=== PATIENT | male | born 1960 | race Caucasian/White ===

== ENCOUNTER 2019-11-25 17:18 | Emergency (ER) | payer OTHER, BC ==
--- NOTE | 2019-11-25 17:32 | EDM.PDOC ---
ED HPI GENERAL MEDICAL PROBLEM - General Chief Complaint: Upper Extremity Injury/Pain Stated Complaint: [facility] Time Seen by Provider: 11/25/19 17:26 Source of Information: Reports: Patient, RN Notes Reviewed History Limitations: Reports: No Limitations - History of Present Illness INITIAL COMMENTS - FREE TEXT/NARRATIVE: Patient is a 59-year-old male presents to the ED via [facility] for a right shoulder injury. Patient notes he was at home, on a ladder that was about 3 feet off of the ground, and he fell off of the ladder onto his right shoulder. He thinks he may have dislocated the shoulder, states not been able to move his arm much at all. Still has pretty good band director strength in his hand, pulses are equal and present bilaterally. He does present with his shoulder above his head, and states is very difficult to move it because of the pain. He did get a total of 1 mg IV Dilaudid for pain management in route to the ER. He states his last meal was at around 11:45 AM this morning. He states he has been feeling well otherwise, no fevers or chills, cough/shortness of breath, nausea/vomiting/diarrhea. He states he did not his head, he did not lose consciousness, he is not having pain anywhere else. Right Shoulder Pain Score (Numeric/FACES): 6 - Related Data Allergies Allergy/AdvReac Type Severity Reaction Status Date / Time No Known Allergies Allergy Verified 11/25/19 17:26 Home Meds: Home Meds Hydrocodone/Acetaminophen [Hydrocodon-Acetaminophen 5-325] 1 each PO Q6HR PRN #15 tablet 11/25/19 [Rx] Social & Family History - Tobacco Use Smoking Status *Q: Never Smoker - Caffeine Use Caffeine Use: Reports: Soda - Recreational Drug Use Recreational Drug Use: No Review of Systems - Review of Systems Review Of Systems: Comprehensive ROS is negative, except as noted in HPI. ED EXAM, GENERAL - Physical Exam Exam: See Below Exam Limited By: No Limitations General Appearance: Alert, WD/WN, No Apparent Distress Respiratory/Chest: No Respiratory Distress, Lungs Clear, Normal Breath Sounds, No Accessory Muscle Use, Chest Non-Tender Cardiovascular: Normal Peripheral Pulses, Regular Rate, Rhythm, No Murmur Peripheral Pulses: 2+: Radial (L), Radial (R) Extremities: Normal Inspection (Patient has some skin abrasions on his right elbow, the arm is raised above his head, he states is too painful to move it further down at the shoulder joint, so I cannot assess whether it looks to be out of place or not.), Normal Capillary Refill Neurological: Alert, Oriented, Normal Cognition, No Motor/Sensory Deficits Psychiatric: Normal Affect, Normal Mood Skin Exam: Warm, Dry, Intact (Skin abrasions noted on the right elbow surface, these are not bleeding.), Normal Color, No Rash ED TRAUMA EXTREMITY PROCEDURES - Joint Reduction Right Shoulder Sedation: Conscious Sedation (Dr. Betancourt administered 110mg propofol total to achieve reduction) Pre-Procedure NV Status: Normal Post-Procedure NV Status: Normal Technique: Traction/Counter Traction Number of Attempts: 1 Post-Reduction Imaging: Completely Reduced Joint Reduction Complications: No Progress/Comments: Dr. Betancourt was in the room to help with propofol and reduction. Course - Vital Signs Last Recorded V/S: Last Vital Signs Temp 100.7 F H 11/25/19 17:22 Pulse 55 L 11/25/19 17:22 Resp 16 11/25/19 17:22 BP 155/74 H 11/25/19 17:22 Pulse Ox 99 11/25/19 17:22 - Orders/Labs/Meds Orders: Active Orders 24 hr Category Date Time Status Shoulder 1V Rt [CR] Stat Exams 11/25/19 17:26 Taken Shoulder Comp Rt [CR] Stat Exams 11/25/19 18:36 Taken Shoulder wo Cont Rt [CT] Stat Exams 11/25/19 19:16 Taken DME for Discharge [COMM] Routine Oth 11/25/19 18:09 Ordered Meds: Medications Discontinued Medications Generic Name Dose Route Start Last Admin Trade Name Tristian PRN Reason Stop Dose Admin Fentanyl 50 mcg 11/25/19 17:36 11/25/19 17:44 Sublimaze IVPUSH 11/25/19 17:37 50 mcg ONETIME ONE Administration Propofol Confirm 11/25/19 18:00 Diprivan 100 Ml Administered 11/25/19 18:01 Dose 100 mls @ as directed .ROUTE .STK-MED ONE Sodium Chloride Confirm 11/25/19 18:06 11/25/19 20:17 Normal Saline Administered 11/25/19 18:07 Not Given Dose 1,000 mls @ as directed .ROUTE .STK-MED ONE Ondansetron HCl 4 mg 11/25/19 17:54 11/25/19 18:03 Zofran IVPUSH 11/25/19 17:55 4 mg ONETIME ONE Administration Propofol 200 mg 11/25/19 17:44 Diprivan 20 Ml IVPUSH 11/25/19 17:45 ONETIME ONE - Re-Assessments/Exams Free Text/Narrative Re-Assessment/Exam: 11/25/19 17:31 Patient presents to the ED for evaluation of his right shoulder injury. X-rays will be obtained to determine whether this is a dislocation versus fracture. He has already been given 1 mg Dilaudid. 11/25/19 20:16 Reduction films did question of a Hill-Sachs fractures, that could have been old. The case was reviewed with Dr. Jennings, and he recommended a CT if there is any question regarding the shoulder being in joint. CT did demonstrate glenohumeral joint that aligned no subluxation or dislocation evident. Small Bankart fracture of the anterior inferior glenoid rim. Mild Hill-Sachs fracture of the greater tuberosity region of the proximal humerus. Subscapularis muscular edema which is likely posttraumatic. We will get him at discharge and have him follow-up with Dr. Jennings sometime within the week. Departure - Departure Time of Disposition: 18:38 Disposition: Home, Self-Care 01 Condition: Good Clinical Impression: Hill Sachs deformity, right Anterior shoulder dislocation Qualifiers: Encounter type: initial encounter Laterality: right Qualified Code(s): S43.014A - Anterior dislocation of right humerus, initial encounter - Discharge Information *PRESCRIPTION DRUG MONITORING PROGRAM REVIEWED*: Yes *COPY OF PRESCRIPTION DRUG MONITORING REPORT IN PATIENT AMEENA: No Prescriptions: Hydrocodone/Acetaminophen [Hydrocodon-Acetaminophen 5-325] 1 each PO Q6HR PRN #1 5 tablet PRN Reason: Pain Instructions: Shoulder Dislocation, [id number] Referrals: Song Jennings MD [Physician] - Forms: ED Department Discharge, ED Return to Work/School Form Additional Instructions: You have been evaluated in the ED for your right shoulder dislocation Your x-ray demonstrated an anterior dislocation; this was reduced successfully in the ER. You were placed in a sling, to help immobilize your shoulder joint. Please keep this in place as much as possible until you are evaluated by Orthopedics. Please use ice as tolerated to the affected area. You may elevate the affected area to provide further relief from swelling. You may take Tylenol 500 mg or ibuprofen 600mg q6 hrs for pain relief. Please do so until you have a tolerable level of pain with activity. Do not exceed 4000mg Tylenol, Do not exceed 3200mg ibuprofen in a 24 hour time period. You were given a prescription for a strong pain medication, hydrocodone/acetaminophen 5/325, please take 1 tab every 6 hours as needed for pain not relieved by Tylenol or ibuprofen alone. Please note this does contain Tylenol in it, so do not take more than 4000 mg in a 24-hour time span. These medications can be addictive, so please take as few as possible to achieve adequate pain control. These meds can also be quite constipating, recommend that you increase your oral fluid intake and take a stool softener like MiraLAX while taking these medications. Please call Ortho for follow-up and further evaluation Dr. Jennings is our orthopedic surgeon, his office number is [phone]. Please call and set up an appointment as soon as possible for further management. This should be in 1 week or so. Please return to ED if your symptoms should change or worsen. Sepsis Event Note (ED) - Evaluation Sepsis Screening Result: No Definite Risk - Focused Exam Vital Signs: Vital Signs Temp Pulse Resp BP Pulse Ox 11/25/19 17:22 100.7 F H 55 L 16 155/74 H 99 - My Orders Last 24 Hours: My Active Orders 11/25/19 17:26 Shoulder 1V Rt [CR] Stat 11/25/19 18:09 DME for Discharge [COMM] Routine 11/25/19 18:36 Shoulder Comp Rt [CR] Stat 11/25/19 19:16 Shoulder wo Cont Rt [CT] Stat - Assessment/Plan Last 24 Hours: My Active Orders 11/25/19 17:26 Shoulder 1V Rt [CR] Stat 11/25/19 18:09 DME for Discharge [COMM] Routine 11/25/19 18:36 Shoulder Comp Rt [CR] Stat 11/25/19 19:16 Shoulder wo Cont Rt [CT] Stat
[2019-11-25] MEDS ORDERED: fentaNYL 100 MCG/2 ML SDV IVPUSH ONE (17:36)
[2019-11-25] MEDS ORDERED: Propofol 200 MG/20 ML SDV IVPUSH ONE (17:44)
[2019-11-25] MEDS ORDERED: Propofol 1,000 MG/100 ML SDV ONE (17:45)
[2019-11-25] MEDS ORDERED: Ondansetron 4 MG/2 ML SDV IVPUSH ONE (17:54)
[2019-11-25] MEDS ORDERED: propofoL 100 ML ONE (18:00)
[2019-11-25] MEDS ORDERED: Sodium Chloride 0.9% 1,000 ML ONE (18:06)
== END 2019-11-25 20:54 | disposition home or self-care (01) ==
LOC: JD.ED 17:18
DX: S43.004A Unspecified dislocation of right shoulder joint, initial encounter (principal); S42.291A Other displaced fracture of upper end of right humerus, initial encounter for closed fracture; S50.311A Abrasion of right elbow, initial encounter; W11.XXXA Fall on and from ladder, initial encounter; Y92.009 Unspecified place in unspecified non-institutional (private) residence as the place of occurrence of the external cause
CPT/HCPCS: 23650; 73020; 73030; 73200; 96374; 96375; 99152; 99153; 99284; J2405; J2704; J3010; 23655; 99283

== ENCOUNTER 2021-12-13 18:54 | Emergency (ER) | payer BC, OTHER ==
[2021-12-13] MEDS ORDERED: HYDROmorphone 1 MG/ML Syringe IM ONE (20:29)
[2021-12-13] MEDS ORDERED: Cefdinir 300 MG Cap PO ONE (21:39)
[2021-12-13] MEDS ORDERED: Acetaminophen/HYDROcodone 325-5 MG Tab PO ONE (21:47)
== END 2021-12-13 22:05 | disposition home or self-care (01) ==
LOC: JD.ED 18:54
DX: S02.2XXB Fracture of nasal bones, initial encounter for open fracture (principal); S09.93XA Unspecified injury of face, initial encounter; E66.9 Obesity, unspecified; Z68.32 Body mass index [BMI] 32.0-32.9, adult; W22.8XXA Striking against or struck by other objects, initial encounter
CPT/HCPCS: 70486; 96372; 99283; A9270; J1170